=== PATIENT | male | born 1970 | race Caucasian/White ===

== ENCOUNTER 2019-06-12 12:15 | Emergency (ER) | payer OTHER ==
[~2019-06-12] VITALS: Ht 170.2 cm; Wt 68.0 kg
[~2019-06-12 12:15] MED LIST: ALBU.083IS IH; CYCL10 PO; META800 PO; NAPR550 PO; Norco 5-325 Ta1 EACH PO; Percocet 5-3251 EACH PO; VARE1 PO
== END 2019-06-12 15:01 | disposition home or self-care (01) ==
LOC: ER 12:15
DX: S06.0X0A Concussion without loss of consciousness, initial encounter (principal); S01.112A Laceration without foreign body of left eyelid and periocular area, initial encounter; M54.2 Cervicalgia; F17.200 Nicotine dependence, unspecified, uncomplicated; W01.10XA Fall on same level from slipping, tripping and stumbling with subsequent striking against unspecified object, initial encounter
CPT/HCPCS: 12011; 72040; 90471; 90714; 99283-25

== ENCOUNTER 2019-06-30 13:20 | Emergency (ER) | payer OTHER ==
[~2019-06-30] VITALS: Ht 170.2 cm; Wt 74.8 kg
[2019-06-30] MEDS ORDERED: Robaxin-750750 MG PO (15:02)
[2019-06-30] MEDS ORDERED: NAPR550 PO (15:02)
[2019-06-30] MEDS ORDERED: Norco 10-325 T1 EACH PO (15:02)
== END 2019-06-30 15:08 | disposition home or self-care (01) ==
LOC: ER 13:20
DX: S22.31XA Fracture of one rib, right side, initial encounter for closed fracture (principal); J44.9 Chronic obstructive pulmonary disease, unspecified; Z87.891 Personal history of nicotine dependence; X58.XXXA Exposure to other specified factors, initial encounter
CPT/HCPCS: 71101; 99283-25

== ENCOUNTER 2020-01-09 14:40 | Emergency (ER) | payer OTHER ==
[~2020-01-09] VITALS: Ht 170.2 cm; Wt 74.8 kg
[~2020-01-09 14:40] MED LIST changes: +Norco 10-325 T1 EACH PO; +Robaxin-750750 MG PO
[2020-01-09] MEDS ORDERED: Robaxin-750750 MG PO (17:05)
[2020-01-09] MEDS ORDERED: NAPR550 PO (17:05)
[2020-01-09] MEDS ORDERED: Norco 10-325 T1 EACH PO (17:05)
== END 2020-01-09 17:24 | disposition home or self-care (01) ==
LOC: ER 14:40
DX: M54.5 Low back pain (principal); Z87.891 Personal history of nicotine dependence
CPT/HCPCS: 99282

== ENCOUNTER 2020-05-01 07:08 | Day surgery (SDC) | payer OTHER ==
[~2020-05-01] VITALS: Ht 170.2 cm; Wt 23.8 kg
== END 2020-05-01 09:25 | disposition home or self-care (01) ==
LOC: ORSCSDS 07:08
PROVIDERS: Student in an Organized Health Care Education/Training Program
PROC: 0DBN8ZX Excision of Sigmoid Colon, Via Natural or Artificial Opening Endoscopic, Diagnostic (ICD-10-PCS; principal; 2020-05-01 08:45)
PROC: 0DBE8ZX Excision of Large Intestine, Via Natural or Artificial Opening Endoscopic, Diagnostic (ICD-10-PCS; principal; 2020-05-01 08:45)
DX: Z12.11 Encounter for screening for malignant neoplasm of colon (principal); K63.5 Polyp of colon; F17.210 Nicotine dependence, cigarettes, uncomplicated
CPT/HCPCS: 88305; J2704; J7120

== ENCOUNTER 2023-08-23 13:13 | Emergency (ER) | payer OTHER ==
[~2023-08-23] VITALS: Ht 170.2 cm; Wt 74.8 kg
[2023-08-23 13:17] VITALS: BP 162/114
[2023-08-23] MEDS ORDERED: Amoxicillin/Clavulanate K 875 MG Tab PO ONE (15:45)
[2023-08-23] MEDS ORDERED: AMOCLA875 PO (16:19)
== END 2023-08-23 16:25 | disposition home or self-care (01) ==
LOC: ER 13:13
DX: S61.432A Puncture wound without foreign body of left hand, initial encounter (principal); L03.114 Cellulitis of left upper limb; J44.9 Chronic obstructive pulmonary disease, unspecified; F17.200 Nicotine dependence, unspecified, uncomplicated; W54.0XXA Bitten by dog, initial encounter
CPT/HCPCS: 73130; 99283-25; A9270

== ENCOUNTER 2025-06-10 00:25 | Inpatient (IN) | payer OTHER ==
[~2025-06-10] VITALS: Ht 170.2 cm; Wt 72.8 kg
[~2025-06-10 00:25] MED LIST changes: +AMOCLA875 PO
[2025-06-10 02:16] LABS: BASOPHILS ABSOLUTE AUTO 0.03 K/mm3 (0.00-0.23); BASOPHILS PERCENT AUTO 0 % (0-2); EOSINOPHILS ABSOLUTE AUTO 0.09 K/mm3 (0.00-0.68); EOSINOPHILS PERCENT AUTO 1 % (0-6); Hematocrit 46.0 % (37.0-53.0); Hemoglobin 15.8 g/dL (13.5-17.5); IMMATURE GRAN ABSOLUTE AUTO 0.04 K/mm3 (0.00-0.10); IMMATURE GRAN PERCENT AUTO 0 % (0-1); LYMPHOCYTES ABSOLUTE AUTO 1.71 K/mm3 (0.84-5.20); LYMPHOCYTES PERCENT AUTO 12 % (21-46); MONOCYTES ABSOLUTE AUTO 0.97 K/mm3 (0.16-1.47); MONOCYTES PERCENT AUTO 7 % (4-13); Mean Corpuscular HGB Conc 34.3 g/dL (31.5-36.5); Mean Corpuscular Volume 92 fL (80-100); NEUTROPHILS ABSOLUTE AUTO 11.73 K/mm3 (1.96-9.15); NEUTROPHILS PERCENT AUTO 81 % (41-73); NRBC ABSOLUTE 0.00 K/mm3 (0.00-0.02); NRBC Auto 0.0 /100 WBC (0.0-0.2); Platelet Count 223 K/mm3 (150-400); RDW Coefficient Variation 12.3 % (11.7-14.2); RDW Standard Deviation 41.3 fL (35.1-46.3)
[2025-06-10] MEDS ORDERED: HYDROcodone 5-APAP 325 TAB PO ONE (02:30)
[2025-06-10 02:35] LABS: Alanine Aminotransfer (ALT/SGP 31.0 U/L (12-78); Albumin, Blood 3.8 g/dL (3.4-5.0); Albumin/Globulin Ratio 1.1 (0.8-1.8); Anion Gap 9.0 mmol/L (3-11); Aspartate Aminotrans (AST/SGOT 24.0 U/L (12-37); Bilirubin, Total 0.9 mg/dL (0.1-1.0); Blood Urea Nitrogen 18.0 mg/dL (8-24); CO2, Blood 27.0 mmol/L (21-32); Calcium, Blood 9.4 mg/dL (8.5-10.1); Chloride, Blood 106.0 mmol/L (98-108); Creatinine, Blood 1.13 mg/dL (0.60-1.20); Ethanol (Alcohol), Blood, Med 4.0 mg/dL; Globulin, Blood 3.4 g/dL (2.2-4.0); Glucose, Blood 93.0 mg/dL (70-99); Potassium, Blood 3.8 mmol/L (3.5-5.5); Sodium, Blood 138.0 mmol/L (136-145); Total Protein, Blood 7.2 g/dL (6.4-8.2)
[2025-06-10] MEDS ORDERED: FLU VACC TS2025-26(6MOS UP)/PF 45 MCG/0.5 ML SYRINGE IM SCH (03:25)
[2025-06-10] MEDS ORDERED: Ondansetron HCl 2 MG / ML 2ML Vial IV PRN (03:25)
[2025-06-10] MEDS ORDERED: Morphine Sulfate 4 MG/1 ML Injection IV PRN (03:25)
[2025-06-10] MEDS ORDERED: CefTRIAXone Sodium 1,000 MG in NS 100 ML IV SCH (04:02)
[2025-06-10 04:55] VITALS: BP 172/116
[2025-06-10] MEDS ORDERED: HydrALAZINE HCl 20 MG / ML 1ML Vial IV PRN (06:10)
[2025-06-10 06:40] VITALS: BP 143/103
--- NOTE | 2025-06-10 06:43 | NUR ---
PT ARRIVED FROM ED ON STRETCHER. PT ABLE TO APPLY LIGHT PRESSURE TO RIGHT LEG D/T RIGHT KNEE LAC. PT IS ALERT AND ORIENTED X 4. PT IS PLEASANT. BP IS ELEVATED. PROVIDER NOTIFIED. NEW ORDERS RECEIVED (SEE CHART). PT PENDING WASHOUT OF RIGHT KNEE LATER TODAY BY ORTHO. PT CURRENTLY NPO. BED LOCKED IN LOWEST POSITION. CALL LIGHT WITHIN REACH. TAMMY, PT'S GIRLFRIEND, IS AT THE BEDSIDE.
[2025-06-10 07:48] VITALS: BP 141/95
[2025-06-10] MEDS ORDERED: Heparin Sodium,Porcine 5,000 UNIT/0.5 ML SDV SC SCH (08:00)
--- NOTE | 2025-06-10 10:07 | NUR ---
AMA this rn assumed care at 0700. vital signs stable. surgical status. patient is alert and oriented x4. neuro is intact. perrla. patient reports pain level at 4 in right knee and medicated per emar. pictures in chart for right knee and left knee abrasion. patient denies chest pain/pressure. patient lung sounds coarse. patient denies shortness of breath. see shift assessment. Md Corral in to see patient around 0830 and discussed plan of care with patient. Patient verbalized understanding. Md Kohli in room around 0910 and discussed getting wash out of right knee. at approx 0930 patient wanting to leave and stated "i cant stay in this rooom". gas charger nilda went over ama paperwork and md kohli at bedside and went over risks for leaveing and patient agreed to leaving. patient left belongings in the room and this rn called and let voicemail at 1000.
[2025-06-10] MEDS ORDERED: LORazepam 2 MG/ML 1ML Injection IV PRN ×3 (10:15)
== END 2025-06-10 09:50 | disposition left against medical advice (07) | DRG 914 ==
LOC: ER 00:25 → PCU 03:23 → ERHOLD 03:23 → PCU 04:17
PROVIDERS: Emergency Medicine; ADMIT Internal Medicine
PROC: 0HCKXZZ Extirpation of Matter from Right Lower Leg Skin, External Approach (ICD-10-PCS; principal; 2025-06-10)
DX: S81.021A Laceration with foreign body, right knee, initial encounter (principal); M00.9 Pyogenic arthritis, unspecified; J44.9 Chronic obstructive pulmonary disease, unspecified; I10 Essential (primary) hypertension; F17.200 Nicotine dependence, unspecified, uncomplicated; V28.49XA Other motorcycle driver injured in noncollision transport accident in traffic accident, initial encounter; Z53.29 Procedure and treatment not carried out because of patient's decision for other reasons
CPT/HCPCS: 10120; 36415; 73562-RT; 73700; 80053; 80320; 83605; 85025; 93005; 93010; 94762; 99285-25; A9270; J0696; J1644; J2270; J2405

== ENCOUNTER 2025-07-15 17:11 | Emergency (ER) | payer OTHER ==
[~2025-07-15] VITALS: Ht 177.8 cm; Wt 72.6 kg
[2025-07-15] MEDS ORDERED: Midazolam HCL 50 MG in NS 40 ML IV PRN (17:30)
[2025-07-15] MEDS ORDERED: Etomidate 2MG / ML 10ML Vial IV ONE ×2 (17:30→20:32)
[2025-07-15] MEDS ORDERED: SuccINYLCHOLINE Chloride 20 MG/ML 10ML Injection IV ONE (17:30)
[2025-07-15] MEDS ORDERED: Naloxone HCl 1MG / ML 2ML SYR IV ONE ×2 (17:30→20:32)
[2025-07-15] MEDS ORDERED: Midazolam HCL 1 MG/ML 5MLVIAL IV ONE (17:35)
[2025-07-15 17:37] LABS: Calcium, Ionized (POC) 1.14 mmol/L (1.10-1.46); Chloride (POC) 101 mmol/L (98-108); Creatinine (POC) 1.2 mg/dL (0.8-1.3); Glucose (ISTAT POC) 150 mg/dL (70-99); Hematocrit (POC) 51.0 % (41.0-53.0); Hemoglobin (POC) 17.3 g/dL (13.5-17.5); Potassium (POC) 3.0 mmol/L (3.5-5.5); Sodium (POC) 141 mmol/L (135-148); Total CO2 (POC) 27 mmol/L (21-32)
[2025-07-15 17:39] LABS: pH Blood Venous 7.45 (7.34-7.37)
[2025-07-15 17:43] LABS: BASOPHILS ABSOLUTE AUTO 0.08 K/mm3 (0.00-0.23); BASOPHILS PERCENT AUTO 1 % (0-2); EOSINOPHILS ABSOLUTE AUTO 0.62 K/mm3 (0.00-0.68); EOSINOPHILS PERCENT AUTO 4 % (0-6); Hematocrit 50.4 % (37.0-53.0); Hemoglobin 17.4 g/dL (13.5-17.5); IMMATURE GRAN ABSOLUTE AUTO 0.12 K/mm3 (0.00-0.10); IMMATURE GRAN PERCENT AUTO 1 % (0-1); LYMPHOCYTES ABSOLUTE AUTO 4.81 K/mm3 (0.84-5.20); LYMPHOCYTES PERCENT AUTO 32 % (21-46); MONOCYTES ABSOLUTE AUTO 0.95 K/mm3 (0.16-1.47); MONOCYTES PERCENT AUTO 6 % (4-13); Mean Corpuscular HGB Conc 34.5 g/dL (31.5-36.5); Mean Corpuscular Volume 91 fL (80-100); NEUTROPHILS ABSOLUTE AUTO 8.35 K/mm3 (1.96-9.15); NEUTROPHILS PERCENT AUTO 56 % (41-73); NRBC ABSOLUTE 0.00 K/mm3 (0.00-0.02); NRBC Auto 0.0 /100 WBC (0.0-0.2); Platelet Count 235 K/mm3 (150-400); RDW Coefficient Variation 12.4 % (11.7-14.2); RDW Standard Deviation 40.7 fL (35.1-46.3)
[2025-07-15 18:00] LABS: Ethanol (Alcohol), Blood, Med <3 mg/dL; Magnesium, Blood 2.2 mg/dL (1.6-2.4); Salicylate <1.7 mg/dL (2.8-20.0)
[2025-07-15 18:02] LABS: Alanine Aminotransfer (ALT/SGP 26 U/L (12-78); Albumin, Blood 3.7 g/dL (3.4-5.0); Albumin/Globulin Ratio 1.1 (0.8-1.8); Anion Gap 8 mmol/L (3-11); Aspartate Aminotrans (AST/SGOT 24 U/L (12-37); Bilirubin, Total 0.8 mg/dL (0.1-1.0); Blood Urea Nitrogen 17 mg/dL (8-24); CO2, Blood 28 mmol/L (21-32); Calcium, Blood 9.3 mg/dL (8.5-10.1); Chloride, Blood 104 mmol/L (98-108); Creatinine, Blood 1.09 mg/dL (0.60-1.20); Globulin, Blood 3.4 g/dL (2.2-4.0); Glucose, Blood 153 mg/dL (70-99); Potassium, Blood 3.1 mmol/L (3.5-5.5); Sodium, Blood 137 mmol/L (136-145); Total Protein, Blood 7.1 g/dL (6.4-8.2)
[2025-07-15 18:04] LABS: Prothrombin Time Results 11.5 Sec (9.7-11.5)
[2025-07-15 18:06] LABS: Acetaminophen, Random <2.0 ug/mL (10.0-30.0)
[2025-07-15 18:52] LABS: Source, Urine Clean Catch
[2025-07-15 18:56] LABS: Bilirubin, Urine Neg (Neg); Glucose Qualitative, Urine Neg (Neg); Ketones, Urine Neg (Neg); Leukocyte Esterase, Urine Neg (Neg); Protein, Urine 2+ (Neg); Specific Gravity, Urine 1.015 (1.003-1.022); Urobilinogen, Urine NORM (Normal)
[2025-07-15 19:02] LABS: Color, Urine Pale Yellow (P-Yellow)
[2025-07-15 19:03] LABS: Red Blood Cells, Urine 0-2 /hpf (0-2); White Blood Cells, Urine 0-2 /hpf (0-5)
[2025-07-15 19:07] LABS: U Amphetamine Screen DETECTED; U Barbiturate Screen Not Detected; U Benzodiazapine Screen Not Detected; U Buprenorphine Screen Not Detected; U Cannabinoids Screen Not Detected; U Cocaine Screen Not Detected; U Methadone Screen Not Detected; U Methamphetamine Screen DETECTED; U Opiates Screen Not Detected; U Oxycodone Screen Not Detected; U Phencyclidine Screen Not Detected
[2025-07-15 19:28] LABS: Thyroid Stimulating Hormone 28.200 uIU/mL (0.360-4.800)
[2025-07-15] MEDS ORDERED: ONDA4ODT MM (20:08)
[2025-07-15] MEDS ORDERED: Midazolam HCl 1MG / ML 2ML Vial IV ONE (20:32)
[2025-07-15] MEDS ORDERED: Phenylephrine HCl 100 MCG/ML-NS 10MLSYR (1MG/10ML) IV ONE (20:32)
[2025-07-15] MEDS ORDERED: SuccINYLCHOLINE Chloride 100 MG/5 ML 5MLSYR IV ONE (20:32)
[2025-07-15 20:45] VITALS: BP 175/120
== END 2025-07-15 21:14 | disposition short-term general hospital (02) ==
LOC: ER 17:11
PROVIDERS: Student in an Organized Health Care Education/Training Program
DX: S06.6XAA Traumatic subarachnoid hemorrhage with loss of consciousness status unknown, initial encounter (principal); J96.00 Acute respiratory failure, unspecified whether with hypoxia or hypercapnia; J44.9 Chronic obstructive pulmonary disease, unspecified; W18.30XA Fall on same level, unspecified, initial encounter
CPT/HCPCS: 31500; 51702; 70450; 70496; 70498; 71045; 80047; 80053; 80320; 81001; 82803; 82947; 83605; 83690; 83735; 83880; 84439; 84443; 84484; 85014; 85025; 85610; 85730; 93005; 93010; 94002; 96365-59; 96375-59; 99285-25; G0480; J0330; J1953; J2250; J2312; J2371; J2704; J3010; Q9967